=== PATIENT | female | born 2000 | race American Indian/Alaskan Native ===

== ENCOUNTER 2024-07-10 09:54 | Emergency (ER) | payer BC, SELFPAY ==
--- NOTE | ~2024-07-10 | CT_ITS ---
EXAMINATION: CT brain wo con DATE: 07/10/2024 12:33 INDICATION: Headache TECHNIQUE: Computed tomography (CT) of the head was performed without intravenous contrast. Sagittal and coronal reconstructions were performed. The mA was adjusted according to patient size. Iterative reconstruction technique was employed. The dose-length product was 681.00 mGy-cm. COMPARISON: None FINDINGS: No acute intracranial hemorrhage, acute infarction or abnormal extra axial fluid collection. Ventricl es are normal and symmetric. No mass/mass effect. The orbits, paranasal sinuses and mastoid air cells are normal. IMPRESSION: 1. Normal head CT. Reviewed, dictated and finalized at location A. IMPRESSION: 1. Normal head CT.
[2024-07-10 10:50] VITALS: BP 105/70; PULSE 98; RESP 16; TEMP 37.7; O2SAT 100
--- NOTE | 2024-07-10 12:22 | ED.GENADULT ---
HPI - General Adult General Chief complaint: Headache Stated complaint: HEADACHE X 3D Time Seen by Provider: 07/10/24 12:05 History of Present Illness HPI narrative: 23-year-old female presents to the emergency department for evaluation for headache over the last 3 days. Patient denies any significant history of headaches. Patient states the headache did start rather quickly and was associated with the front of her head. Patient does report associated light sensitivity. Patient denies any associated nausea and vomiting. Patient also reports that she has had increased body aches and fatigue. Patient denies any neck or back pain. Patient denies any associated numbness or weakness. Patient denies any coughs colds or fevers. Related Data Allergies Allergy/AdvReac Type Severity Reaction Status Date / Time No Known Allergies Allergy Verified 07/10/24 12:47 Review of Systems Review of Systems: All systems reviewed & are unremarkable except as noted in HPI and below Exam Narrative: APPEARANCE: Uncomfortable appearing due to headache HEAD: normocephalic, atraumatic. EYES: PERRLA/EOMI, conjunctivae clear. NOSE: Normal no drainage EARS:TMS clear with good light reflex. THROAT: Pharynx clear, no exudate. NECK: Supple. No adenopathy, no masses. RESPIRATORY: Airway patent, respirations nonlabored. Clear to auscultation bilaterally, no rales, rhonchi, wheezing. CARDIOVASCULAR: Regular rate and rhythm without murmurs rubs or gallops. ABDOMINAL: Soft, nontender, nondistended, normal bowel sounds MUSCULOSKELETAL: Moves all extremities. Strength/ROM intact, No edema, No calf tenderness. NEURO: Alert. Cranial nerves II through XII intact. Good gait. Good coordination SKIN: Warm, dry. Normal Color Course Vital Signs Vital signs: Vital Signs Temperature 99.9 F H 07/10/24 10:50 Pulse Rate 98 07/10/24 10:50 Respiratory Rate 16 07/10/24 10:50 Blood Pressure 105/70 07/10/24 10:50 Pulse Oximetry 100 07/10/24 10:50 Temperature 99.9 F H 07/10/24 10:50 Pulse Rate 90 07/10/24 15:25 Respiratory Rate 16 07/10/24 15:25 Blood Pressure 139/68 07/10/24 15:25 Pulse Oximetry 100 07/10/24 15:25 Medical Decision Making MDM Narrative Medical decision making narrative: 23-year-old female presents emergency department for evaluation for headache. Patient states he does not typically have headaches. Patient's urine preg was negative. Head CT was negative. Patient was started on Toradol, Compazine Benadryl and IV fluids. Patient did feel improved on re-evaluation. Was updated results of her imaging. All questions concerns were addressed. Differential Diagnosis Differential Diagnosis: Migraine, headache, sinus infection, subdural hematoma, subarachnoid hemorrhage Vital Signs Vital Signs: Vital Signs Temperature 99.9 F H 07/10/24 10:50 Pulse Rate 98 07/10/24 10:50 Respiratory Rate 16 07/10/24 10:50 Blood Pressure 105/70 07/10/24 10:50 Pulse Oximetry 100 07/10/24 10:50 Temperature 99.9 F H 07/10/24 10:50 Pulse Rate 90 07/10/24 15:25 Respiratory Rate 16 07/10/24 15:25 Blood Pressure 139/68 07/10/24 15:25 Pulse Oximetry 100 07/10/24 15:25 Lab Data Lab results reviewed: Yes I reviewed the patient's lab results. Labs: Lab Results 07/10/24 Range/Units 13:01 POC Urine HCG, Qual Negative (Negative) Imaging Data Radiologist's impression: Impressions Head CT 07/10/24 12:35 IMPRESSION: 1. Normal head CT. Discharge Plan Discharge Clinical Impression: Headache Patient Disposition: Home, Self-Care Condition: Stable Instructions: Antibiotic Form, Acute Headache (ED) Additional Instructions: Tylenol and ibuprofen for pain control. Have close follow-up with your primary care physician. If you have any worsening symptoms then please call or return to the emergency department. Follow-up/Referrals: PHYSICIAN NOT ON STAFF,NONSTAFF [Non-Staff] -
[2024-07-10] MEDS: diphenhydrAMINE HCl INJ 50 MG/ML VIAL 25 MG IV PUSH (12:48)
[2024-07-10] MEDS: SODIUM CHLORIDE 0.9% IV 1,000 ML 999 ML IV CONT (12:48)
[2024-07-10] MEDS: PROCHLORPERAZINE EDISYLATE 10 MG/2 ML VIAL IV PUSH (12:48)
[2024-07-10] MEDS: KETOROLAC 15 MG/ML VIAL (*BKC) (12:49)
[2024-07-10 13:00] VITALS: BP 133/74; PULSE 86; RESP 14; O2SAT 99
[2024-07-10 13:03] LABS: BEDSIDEPREGUCG Negative (Negative)
[2024-07-10 15:25] VITALS: BP 139/68; PULSE 90; RESP 16; O2SAT 100
== END 2024-07-10 15:31 | disposition home or self-care (01) ==
PROVIDERS: Emergency Provider Emergency Medicine
DX: R51.9 Headache, unspecified (principal)
CPT/HCPCS: 70450; 81025; 96361; 96374; 96375; 99284; J0780; J1200; J1885; J7030

== ENCOUNTER 2024-07-12 13:46 | Emergency (ER) | payer BC, SELFPAY ==
--- NOTE | ~2024-07-12 | XR_ITS ---
EXAMINATION: XR chest 2V DATE: 07/12/2024 14:34 INDICATION: Fever TECHNIQUE: frontal and lateral views of the chest were obtained. COMPARISON: None FINDINGS: The lungs are clear with no focal airspace opacities, pulmonary edema, pleural effusion or pneumothor ax. The cardiomediastinal silhouette is normal. Visualized bones and soft tissues are unremarkable. IMPRESSION: 1. No acute cardiopulmonary disease. Reviewed, dictated and finalized at location A.
[2024-07-12 14:03] VITALS: BP 106/73; PULSE 91; RESP 12; TEMP 37; O2SAT 100
--- NOTE | 2024-07-12 14:12 | ED.FEVER ---
HPI - Fever General Chief Complaint: Fever Stated Complaint: fever, decreased intake Time Seen by Provider: 07/12/24 14:12 Source: patient Mode of arrival: ambulatory Limitations: no limitations History of Present Illness HPI Narrative: 23 YEARS OLD FEMALE CAME TO THE ED COMPLAINING OF FEELING FEVERISH, HEADACHE, BODY ACHES, LETHARGIC, LONG HOURS SLEEP, CHILLS AT NIGHT STARTED 5 DAYS AGO, WAS SEEN 2 DAYS LATER IN OUR EMERGENCY ROOM FOR HEADACHE AND GOT BETTER ON IV FLUID AND TORADOL TREATMENT. SHE DENIES ANY NAUSEA, VOMITING, CHEST PAIN, BACK PAIN OR ABDOMINAL PAIN. Related Data Allergies Allergy/AdvReac Type Severity Reaction Status Date / Time No Known Allergies Allergy Verified 07/10/24 12:47 Review of Systems Review of Systems: All systems reviewed & are unremarkable except as noted in HPI and below Exam Narrative: GENERAL APPEARANCE: WELL-DEVELOPED, WELL-NOURISHED SKIN: NORMAL COLOR HEAD: NORMOCEPHALIC, NONTRAUMATIC EYES: CLEAR CONJUNCTIVA ENT: OROPHARYNX NORMAL, EARS NORMAL, NOSE NORMAL NECK: SUPPLE, NONTENDER CHEST AND RESPIRATORY: AIRWAY PATENT, NO RESPIRATORY DISTRESS, NO ACCESSORY MUSCLE USE HEART: REGULAR RATE/RHYTHM ABDOMEN: SOFT, NONTENDER, NO ORGANOMEGALY, QUIET BOWEL SOUNDS VASCULAR: NORMAL PERIPHERAL PULSES, NORMAL CAPILLARY REFILL. MUSCULOSKELETAL: NORMAL RANGE OF MOTION, NONTENDER BACK NEUROLOGIC: ALERT AND ORIENTED ?3, SQUEAK RATTLE AND LEAK REPAIRER IS NORMAL TESTED, NO GROSS MOTOR DEFICIT Course Vital Signs Vital signs: Vital Signs Temperature 37.0 C 07/12/24 14:03 Pulse Rate 91 07/12/24 14:03 Respiratory Rate 12 07/12/24 14:03 Blood Pressure 106/73 07/12/24 14:03 Pulse Oximetry 100 07/12/24 14:03 Temperature 36.2 C L 07/12/24 16:27 Pulse Rate 69 07/12/24 16:27 Respiratory Rate 17 07/12/24 16:27 Blood Pressure 110/73 07/12/24 16:27 Pulse Oximetry 100 07/12/24 16:27 MDM - Fever MDM Narrative Medical decision making narrative: PATIENT CAME WITH GENERAL WEAKNESS, FEELING FEVERISH AND TIRED PATIENT STARTED SCHOOL RECENTLY VITAL SIGNS ARE STABLE PHYSICAL EXAMINATION INSIGNIFICANT DIFFERENTIAL DIAGNOSIS INCLUDE VIRAL INFECTION, URINARY TRACT INFECTION, PNEUMONIA, ELECTROLYTE IMBALANCE, DEHYDRATION BLOOD WORKUP TODAY SHOWED WBC OF 4.4 PLATELETS OF 125, AST T 96? ALT 55 URINALYSIS SHOWED POSSIBLE URINARY TRACT INFECTION DISCHARGED ON MACROBID THE PT WAS DISCHARGED TO HOME.THE PT,S CONDITION UPON DISCHARGE WAS FAIR,EDUCATION WAS PROVIDED TO THE PT IN REFERENCE TO THE FINAL IMPRESSION,DISCHARGE STUDY RESULTS,TREATMENT,PROGNOSIS AND NEED FOR FOLLOW UP . Differential Diagnosis Differential diagnosis: Likely other ( ABOVE) Medical Records Attestation: I reviewed the patient's medical records. Lab Data Attestation: I reviewed the patient's lab results. 07/12/24 14:30 07/12/24 14:30 Labs: Lab Results 07/12/24 07/12/24 Range/Units 14:29 14:30 WBC 4.4 L (4.5-10.0) K/mm3 RBC 3.63 L (4.2-5.4) M/mm3 Hgb 12.0 (12.0-15.0) g/dL Hct 34.6 L (37.0-47.0) % MCV 95.3 (80-100) fl MCH 33.1 (26-34) pg MCHC 34.7 (32-36) g/dl RDW 11.5 (11.5-14.5) % Plt Count 125 L (150-375) k/mm3 MPV 9.7 (7.4-10.4) fl Immature Gran % (Auto) 0.5 (0-0.5) % Neut % (Auto) 32.8 L (45.5-73.1) % Lymph % (Auto) 52.0 H (18.3-44.2) % [place] % (Auto) 12.2 H (2.6-8.5) % Eos % (Auto) 1.4 (0-4.4) % Baso % (Auto) 1.1 (0.2-1.2) % Lymph # (Auto) 2.30 (0.9-3.2) K/mm3 [place] # (Auto) 0.5 (0.1-0.6) K/mm3 Eos # (Auto) 0.1 (0-0.3) K/mm3 Baso # (Auto) 0.1 (0.0-0.1) K/mm3 Abs Immat Gran (auto) 0.02 (0.00-0.031) K/mm3 Absolute Neuts (auto) 1.5 (1.3-6.7) K/mm3 Absolute Nucleated RBC 0.000 (0.0-0.012) K/mm3 Nucleated RBC % 0.0 (0.0-0.2) % Atypical Lymphocytes Present Platelet Estimate Slightly decreased (Adequate) % Immature Plt Fraction 2.6 (0.9-11.2) % Schistocytes None seen Sodium 138 (137-145) mmol/L Potassium 4.2 (3.4-5.0) mmol/L Chloride 106 (98-107) mmol/L Carbon Dioxide 24 (22-30) mmol/L Anion Gap 8 (4-12) mmol/L BUN 7 (7-17) mg/dL Creatinine 0.80 (0.7-1.0) mg/dL Estim Creat Clear Calc Not Reportable Estimated GFR > 60 (59 - ) Glucose 89 (65-110) mg/dL Calcium 8.3 L (8.4-10.2) mg/dL Total Bilirubin 1.1 (0.2-1.3) mg/dL AST 96 H (14-36) U/L ALT 55 H (6-35) U/L Alkaline Phosphatase 77 (38-126) U/L Total Protein 8.0 (6.3-8.2) g/dL Albumin 3.8 (3.5-5.1) g/dL Urine Color Yellow (Yellow) Urine Appearance Cloudy H (Clear) Urine pH 8.0 (5.0-9.0) Ur Specific [place] 1.025 (1.001-1.035) Urine Protein 1+ H (Negative) mg/dL Urine Glucose (UA) Negative (Negative) mg/dL Urine Ketones Trace H (Negative) mg/dL Ur Blood (Man) Negative (Negative) Urine Nitrate Negative (Negative) Urine Bilirubin Negative (Negative) Urine Urobilinogen 1.0 (<2.0) mg/dL Add Ur Microanalysis Reviewed Leukocyte Esterase Rfl Trace H (Negative) GEOVANNI/UL Urine RBC 3-5 H (0-2) /hpf Urine WBC 11-20 H (0-3) /hpf Ur Squamous Epith Cells Moderate (Few) /hpf Urine Bacteria 3+ H /hpf Urine Casts 3-5 POC Urine HCG, Qual Negative (Negative) Influenza A (RT-PCR) Negative (Negative) Influenza B (RT-PCR) Negative (Negative) RSV (RT-PCR) Negative (Negative) SARS-CoV-2 RNA (RT-PCR) Negative (Negative) Imaging Data Radiologist's impression: Impressions Chest X-Ray 07/12/24 15:01 IMPRESSION: 1. No acute cardiopulmonary disease. Critical Care Time Critical Care Time Critical Care Time: No Discharge Plan Discharge Clinical Impression: Viral syndrome, Urinary tract infection Patient Disposition: Home, Self-Care Condition: Stable Instructions: Urinary Tract Infection in Women (DC), Viral Syndrome (ED) Additional Instructions: RETURN IF SYMPTOMS ARE WORSENING , CALL YOUR FAMILY PHYSICIAN FOR APPOINTMENT, TAKE TYLENOL, IBUPROFEN NEEDED FOR ACHES AND PAIN, CONTINUE HOME MEDICATIONS. Prescriptions: New nitrofurantoin monohyd/m-cryst [Macrobid] 100 mg capsule 100 mg PO Q12H 5 Days Qty: 10 0RF Rx Instructions: must administer with a meal/food Follow-up/Referrals: Antonio Willson MD [Physician] - 07/15/24 UNKNOWN,DOCTOR [Non-Staff] - Stand Alone Forms: Work/School Release IP
[2024-07-12 14:32] LABS: BEDSIDEPREGUCG Negative (Negative)
[2024-07-12] MEDS: SODIUM CHLORIDE 0.9% IV 1,000 ML 999 ML IV CONT (14:39)
[2024-07-12] MEDS: KETOROLAC 30 MG/ML VIAL (*BKC) IV PUSH (14:40)
[2024-07-12 14:57] LABS: Basophils Absolute Auto 0.1 K/mm3 (0.0-0.1); Basophils Percent Auto 1.1 % (0.2-1.2); Eosinophils Absolute Auto 0.1 K/mm3 (0-0.3); Eosinophils Percent Auto 1.4 % (0-4.4); Hematocrit 34.6 % (37.0-47.0); Immature Granulocyte Absolute 0.02 K/mm3 (0.00-0.031); Immature Granulocyte Percent A 0.5 % (0-0.5); Immature Platelet Fraction Pct 2.6 % (0.9-11.2); Mean Corpuscular HGB Conc 34.7 g/dl (32-36); Mean Corpuscular Hemoglobin 33.1 pg (26-34); Mean Corpuscular Volume 95.3 fl (80-100); Mean Platelet Volume 9.7 fl (7.4-10.4); Monocytes Absolute Auto 0.5 K/mm3 (0.1-0.6); Monocytes Percent Auto 12.2 % (2.6-8.5); Neutrophils Absolute Auto 1.5 K/mm3 (1.3-6.7); Neutrophils Percent Auto 32.8 % (45.5-73.1); Platelet Count Result 125 k/mm3 (150-375); Red Blood Count 3.63 M/mm3 (4.2-5.4); Red Cell Distribution Width 11.5 % (11.5-14.5); White Blood Count 4.4 K/mm3 (4.5-10.0)
[2024-07-12 15:11] LABS: Alanine Aminotransferase 55 U/L (6-35); Albumin Level 3.8 g/dL (3.5-5.1); Alkaline Phosphatase 77 U/L (38-126); Anion Gap 8 mmol/L (4-12); Aspartate Amino Transferase 96 U/L (14-36); Bilirubin,Total 1.1 mg/dL (0.2-1.3); Blood Urea Nitrogen 7 mg/dL (7-17); Calcium 8.3 mg/dL (8.4-10.2); Carbon Dioxide 24 mmol/L (22-30); Chloride 106 mmol/L (98-107); Estimated Glomerular Filt Rate > 60; Glucose 89 mg/dL (65-110); Potassium 4.2 mmol/L (3.4-5.0); Sodium 138 mmol/L (137-145)
[2024-07-12 15:12] LABS: Add Urine Microscopic? YES; Appearance Urine Cloudy (Clear); Bacteria Urine 3+ /hpf; Bilirubin Urine Negative (Negative); Blood Urine Negative (Negative); Color Urine Yellow (Yellow); Glucose Urine UA Negative (Negative); Ketones Urine Trace mg/dL (Negative); Leukocyte Esterase Ur Trace LEU/UL (Negative); Need Manual Microscopic Reviewed; Nitrate Urine Negative (Negative); Protein Urine 1+ mg/dL (Negative); Specific Grav Ur 1.025 (1.001-1.035); Squamous Epithelial Cell Urine Moderate /hpf (Few)
[2024-07-12 15:16] LABS: Atypical Lymphocytes Present; Platelet Estimate Slightly Decreased (Adequate); Schistocytes None Seen
[2024-07-12 15:32] LABS: Influenza A QL RT-PCR Negative (Negative); Influenza B QL RT-PCR Negative (Negative); RSV RNA, RT-PCR Negative (Negative); SARS-CoV-2 RNA PCR Negative (Negative)
[2024-07-12 16:27] VITALS: BP 110/73; PULSE 69; RESP 17; TEMP 36.2; O2SAT 100
[2024-07-12 18:00] VITALS: BP 105/72; PULSE 69; RESP 17; TEMP 36.7; O2SAT 99
== END 2024-07-12 18:18 | disposition home or self-care (01) ==
PROVIDERS: Emergency Provider Emergency Medicine
DX: B34.9 Viral infection, unspecified (principal); N39.0 Urinary tract infection, site not specified; Z20.822 Contact with and (suspected) exposure to COVID-19
CPT/HCPCS: 36415; 71046; 80053; 81001; 81025; 85025; 85055; 87086; 87637; 96361; 96374; 99284; J1885; J7030

== ENCOUNTER 2024-10-09 18:49 | Emergency (ER) | payer BC, SELFPAY ==
[2024-10-09 18:51] VITALS: BP 117/75; PULSE 95; RESP 18; TEMP 36.9; O2SAT 100
--- NOTE | 2024-10-09 23:10 | PC.NURSE ---
2 calls, no answer.
== END 2024-10-09 23:10 | disposition left against medical advice (07) ==
DX: O20.9 Hemorrhage in early pregnancy, unspecified (principal)
CPT/HCPCS: 99199